=== PATIENT | male | born 1970 | race Hispanic/Latino ===

== ENCOUNTER 2017-03-02 09:01 | Day surgery (SDC) | payer BC ==
[2017-02-25 12:50] VITALS: BMI 35.6
[2017-03-02 09:55] LABS: BASO # 0.02 K/mm3 (0.0-2.0); BASO % 0.2 % (0.0-3.0); EOS # 0.2 (0.0-0.7); EOS % 2.5 % (1.5-5.0); GRAN # 6.65 (1.4-6.5); GRAN % 73.4 % (50.0-68.0); LYMPH # 1.6 (1.2-3.4); LYMPH % 17.3 % (22.0-35.0); MEAN CELL VOLUME 95.4 fl (80.0-105.0); MEAN CORPUSCULAR HGB CONC 33.5 g/dl (31.0-37.0); MONO # 0.6 (0.1-0.6); MONO % 6.6 % (1.0-6.0); RBC 4.38 10^6/uL (3.5-6.1); RED CELL DISTRIBUTION WIDTH 13.1 % (11.5-14.5); WHITE BLOOD COUNT 9.1 10^3/ul (4.5-11.0)
[2017-03-02 10:05] LABS: INR 1.17 (0.93-1.08); PARTIAL THROMBOPLASTIN TIME 29.9 Seconds (25.1-36.5); PROTHROMBIN TIME 12.9 SECONDS (9.4-12.5)
[2017-03-02 10:09] LABS: BLOOD UREA NITROGEN 21 mg/dL (7-21); CALCIUM 9.8 mg/dL (8.4-10.5); GFR AFRICAN-AMERICAN > 60; GFR NON-AFRICAN AMERICAN > 60
[2017-03-02] MEDS ORDERED: Midazolam 2 MG/2 ML VIAL ONE ×2 (10:26→11:57)
[2017-03-02] MEDS ORDERED: Lidocaine 1% Inj (20ml) ONE (10:51)
[2017-03-02] MEDS ORDERED: Oxycodone/Acetaminophen 5/325 mg Tab PO PRN (12:09)
[2017-03-02] MEDS ORDERED: Sodium Chloride 0.45% 1,000 ML IV SCH (12:15)
[2017-03-02 13:08] VITALS: RESP 18; TEMP 97.8
[2017-03-02 14:27] VITALS: BP 133/75; PULSE 79; O2SAT 97
--- NOTE | 2017-03-02 20:03 | CT ---
PROCEDURE: CT guided liver biopsy. HISTORY: History colon CA. Solitary 1.5 cm lesion in the right lobe of the liver. Evaluate for metastatic disease. PHYSICIAN(S): Oneal Garcia MD. TECHNIQUE: The relative risks and indications of the procedure were explained to the patient and consent obtained. The patient was placed supine on the CT scanner and preliminary images through the liver obtained. Conscious sedation and monitoring were provided throughout the procedure by a nurse. The 1.5 cm low-attenuation lesion adjacent to the gallbladder is somewhat difficult to visualize on these noncontrast images. Correlation with the patient's outside CT and MRI exams was performed. A right oblique approach was selected and the area prepped and draped in the usual sterile fashion. 1% Xylocaine was used to anesthetize the skin and soft tissues. A 17-gauge guiding needle was advanced into the subtle 1.5 cm low-attenuation area adjacent to the gallbladder. Its position was confirmed with CT. Using coaxial technique, multiple core biopsies were obtained. The postprocedure images show no evidence of significant hemorrhage. IMPRESSION: 1. CT-guided liver biopsy as described above.
== END 2017-03-02 14:40 | disposition home or self-care (01) ==
LOC: SDS 09:01
PROVIDERS: ATTEND Radiology Vascular & Interventional Radiology
DX: K76.89 Other specified diseases of liver (principal); Z85.038 Personal history of other malignant neoplasm of large intestine; I10 Essential (primary) hypertension; I73.9 Peripheral vascular disease, unspecified; J45.909 Unspecified asthma, uncomplicated; E66.9 Obesity, unspecified; E78.5 Hyperlipidemia, unspecified; R51 Headache; K50.90 Crohn's disease, unspecified, without complications; Z86.010 Personal history of colon polyps; Q87.2 Congenital malformation syndromes predominantly involving limbs; I42.9 Cardiomyopathy, unspecified; G47.30 Sleep apnea, unspecified; F41.9 Anxiety disorder, unspecified; N40.0 Benign prostatic hyperplasia without lower urinary tract symptoms; R63.4 Abnormal weight loss; Z90.49 Acquired absence of other specified parts of digestive tract; Z91.018 Allergy to other foods; Z68.35 Body mass index [BMI] 35.0-35.9, adult
CPT/HCPCS: 36415; 47000; 77012; 80048; 85025; 85610; 85730; 88307; J2250; J2405; J3010; J7030

== ENCOUNTER 2018-04-20 07:51 | Outpatient (CLI) | payer BC | END 2018-04-20 07:52 | disposition home or self-care (01) | LOC: PAT 07:51 ==

== ENCOUNTER 2018-05-13 06:00 | Day surgery (SDC) | payer BC ==
[2018-05-13 07:12] VITALS: BMI 35.6
[2018-05-13] MEDS ORDERED: Propofol 10 mg/ml Inj (20 ML) ONE (07:47)
[2018-05-13] MEDS ORDERED: Midazolam 2 MG/2 ML VIAL ONE (07:47)
[2018-05-13] MEDS ORDERED: Rocuronium 10 mg/ml (5 ml) ONE (07:48)
[2018-05-13] MEDS ORDERED: Iohexol 240 (50 ml) ONE (07:56)
[2018-05-13] MEDS ORDERED: Bupivacaine 0.5% 50 ML IJ ONE ×2 (07:56→08:05)
[2018-05-13] MEDS ORDERED: Phenylephrine 10 mg/ml Inj ONE (08:05)
[2018-05-13] MEDS ORDERED: Glycopyrrolate 0.2 mg/ml (2ml vial) ONE (08:57)
[2018-05-13] MEDS ORDERED: Neostigmine Methylsulfate 3mg/3ml Syringe IV ONE (08:58)
[2018-05-13] MEDS ORDERED: HYDROmorphone 0.5 mg/0.5 ml ISec IVP PRN (09:12)
[2018-05-13] MEDS ORDERED: Lactated Ringer's 1,000 ML IV SCH (09:15)
[2018-05-13] MEDS ORDERED: Oxycodone/Acetaminophen 5/325 mg Tab PO PRN (09:29)
--- NOTE | 2018-05-13 09:29 | PCM.SURG1 ---
Surgeon's Initial Post Op Note - Surgeon's Notes Surgeon: Dr Smith Head Batcher: Dr Rodney PGY4 Type of Anesthesia: General Endo Anesthesia Administered By: Dr Beltran Pre-Operative Diagnosis: Gallbladder polyp Operative Findings: see dictation Post-Operative Diagnosis: as above Operation Performed: Laparoscopic cholecystectomy w/ IOC Specimen/Specimens Removed: gallbladder Estimated Blood Loss: EBL {In ML}: 5 Blood Products Given: N/A Drains Used: No Drains Post-Op Condition: Good Date of Surgery/Procedure: 05/13/18 Time of Surgery/Procedure: 09:29
[2018-05-13] MEDS ORDERED: HYDROmorphone 0.5 mg/0.5 ml ISec ONE ×2 (09:44→10:03)
[2018-05-13] MEDS ORDERED: HYDROmorphone 0.5 mg/0.5 ml ISec IVP ONE ×2 (10:41→10:56)
[2018-05-13 10:48] VITALS: RESP 18
[2018-05-13 11:18] VITALS: TEMP 97.8
[2018-05-13 12:19] VITALS: BP 105/56; PULSE 80; O2SAT 93
--- NOTE | 2018-05-13 15:44 | RAD ---
Date of service: 05/13/2018 PROCEDURE: ERCP HISTORY: R/O OBSTRUCTION COMPARISON: None TECHNIQUE: Standard protocol for this study/examination. FINDINGS: Submitted images from the current procedure: 2.0 IMPRESSION: Total fluoroscopic time (continuous mode) utilized during the procedure 9.2 seconds. Total exam DLP: 4.82 (mGy).
--- NOTE | 2018-05-14 02:59 | OP ---
PROCEDURE DATE: 05/13/2018 OPERATION: Laparoscopic cholecystectomy. PREOPERATIVE DIAGNOSIS: Gallbladder polyps. POSTOPERATIVE DIAGNOSIS: Gallbladder polyps. SURGEON: Silas Harmon MD TELEVISION EQUIPMENT OPERATOR: Nile Rodney DO, PGY-4. ANESTHESIA: Dr. Beltran. INDICATION: This is a 47-year-old male with history of hypertension, diabetes, comes in with a 1.4-cm gallbladder polyp, warranting cholecystectomy. DESCRIPTION OF PROCEDURE: The patient was taken to the operating room, placed on the table in supine position. After the induction of general anesthesia, the patient was prepped and draped in the usual sterile fashion. At this point in time, a time-out was performed confirming the appropriate patient, the appropriate surgery, and the appropriate location as well as preoperative antibiotics. Ancef 2 g were given. Everyone in the room was in agreement. At this point, we turned our attention towards entering the abdomen. Given the history of the patient's laparoscopic hemicolectomy in the past, decision was made to forego an umbilical incision. A small 2-cm vertical incision was made just lateral to the midline supraumbilically. Dissection was carried down through the anterior fascia and rectus muscle using electrocautery. Further blunt dissection using retractors down to the posterior fascia was performed. Posterior fascia was then grasped with Kochers and elevated anteriorly. Small incision was made using electrocautery exposing the peritoneum. This was then grasped with Gina clamps and further lifted anteriorly. This was palpated to ensure that there was no bowel stuck immediately underneath the peritoneum and then this was gently incised using the 15 blade. At this point using digital palpation, the peritoneum was entered circumferentially palpated for any underlying adhesed bowel which there was none. At this point, using a 2-0 Vicryl, a enjujy-fa-awplm suture was applied and Jfef port was entered and secured into place. Insufflation was connected to the Jeff port and the abdomen was insufflated with opening pressure of 6 mmHg without difficulty. Following this, the camera was inserted and the abdomen was assessed for Pathology. The immediate underlying bowel below the entrance point was assessed for any injury that could have occurred during entrance into the abdomen but there was none. There was no blood. There was no intra-abdominal fluid. There were no ascites or socket encountered. After adequate inspection of the peritoneal cavity, attention was directed towards the right upper quadrant in which the gallbladder was seen underlying the liver bed. Our second port was placed subxiphoid 5-mm incision after local infiltration of Marcaine, 5-mm incision with a 11-blade followed by the 5-mm trocar which was placed through the falciform ligament. The grasper was then placed to the operative camera port. The fundus with the gallbladder was grasped and this was elevated towards the ipsilateral shoulder exposing our infundibulum and triangle. Using a [place] grasper, these were repositioned that the grasper was holding the infundibulum providing harder traction giving us full exposure to the cystic triangle. Using blunt dissection with electrocautery, the cystic duct was identified. This was easily circumnavigated as the surrounding fibers and adhesive tissue were brought down using blunt dissection. After the cystic ducts were identified, we could see presumptive node of Calot as well as cystic artery just medially to this. A clip was placed proximally on the gallbladder side and then using laparoscopic scissors, a small incision was made into the cystic duct anteriorly less than 40% in the circumference. At this point, a cholangiogram catheter was pasted into the cystic duct. The balloon was inflated with 5 mL of saline and then the portable C-arm was brought in for cholangiogram. Using approximately 10 mL of contrast, the biliary tree was injected. Our cholangiogram showed a widely patent right and left hepatic ducts branching down into a main hepatic duct which then came down to a duct which came off laterally where we had cannulated presumptively the cystic duct as well a fully connected and widely patent CBD which then clearly drained into the intestine. Our cholangiogram had confirmed that we had indeed identified the correct structure, that being the cystic duct, and that there were no retained CBD or intrahepatic stone. Cholangiogram catheter was then removed from the cystic duct, and we proceeded directly with cholecystectomy. Two more clips were then applied on the distal end of the cystic duct, and this was completely transected using laparoscopic scissors. The same procedure of circumnavigating the cystic artery using blunt dissection with the [place] followed by two clips distally, one clip proximally on the specimen site, and then this was taken down with electrocautery. At this point, both of our structures entering the border of the gallbladder had been taken down, and all that remained was to take the gallbladder off the liver bed. This was done using electrocautery dissection. Care was taken to make sure that appropriate hemostasis was achieved within the liver bed as we proceeded with our dissection from a [id number] fashion. After the gallbladder was completely removed from the liver bed, was placed just above the liver, we changed our 10-mm operative camera scope for a 5-mm camera and placed this up in the top subxiphoid 5-mm port, followed by the Endo Catch bag to the 12-mm Jeff port above the umbilicus. The gallbladder was placed in the bag and then removed out of the umbilicus under direct visualization. The 5-mm camera was then re-inserted into the umbilicus and the xiphoid port was then removed under direct visualization and then the Jeff port was removed as well. The abdomen was allowed to desufflate. Then using again 2-0 Vicryl under direct visualization, an additional running suture was applied to the posterior fascia of the umbilicus port. This was closed in a running fashion in conjunction with our previously existing [id number]. The fascia was closed in its entirety. There was no evidence of defect. There was no contained bowel within which was confirmed by digital palpation. The patient tolerated the procedure well. He was extubated and transported to PACU in stable condition. Estimated blood loss was approximately 5 mL. The patient did well and was discharged home with followup in office in one week. Nile Rodney DO Silas Harmon MD
== END 2018-05-13 16:00 | disposition home or self-care (01) ==
LOC: SDS 06:00
PROVIDERS: ATTEND General Practice
DX: K80.10 Calculus of gallbladder with chronic cholecystitis without obstruction (principal); K82.4 Cholesterolosis of gallbladder; I10 Essential (primary) hypertension; E11.9 Type 2 diabetes mellitus without complications
CPT/HCPCS: 47563; 74300; 88304; J0690; J1170; J2001; J2250; J2370; J2405; J2704; J2710; J3010; J7120 ×2; Q9966